=== PATIENT | female | born 1970 | race Caucasian/White ===

== ENCOUNTER → 2017-03-19 | Outpatient (CLI) | payer OTHER ==
[~2017-03-19] MED LIST: ASPIRIN81 M2 PO; BUPROPION XL150 MG PO; CALCITRIOL0.25 MCG PO; CHLORTHALIDONE50 M1 PO; FA-80.8 M1; FERRO-TIME325 MG PO; GABAPENTIN300 M2 PO; HYDRALAZINE HCL25 MG PO; LASIX20 MG PO; LIPITOR40 MG PO; NORMODYNE PO; NORVASC10 MG PO; OMEPRAZOLE20 M2 PO; PAROXETINE HCL10 MG PO; PAROXETINE HCL20 M1 PO; PREDNISONE PO; PRINIVIL20 M1 PO; RENVELA800 MG PO; ROCALTROL0.5 MC1 PO; SENSIPAR30 M1; SOD BICARBONATE PO; SODIUM BICARBO325 MG PO; SYNTHROID PO; VITAMIN B125000 MCG PO; VITAMIN D50000 UNIT PO; ZOCOR PO; ZYLOPRIM PO
--- NOTE | ~2017-03-19 | MY11 ---
[facility] A Service of [facility] RADIOLOGY TEXT RESULTS PATIENT: LINDSEY LEACH LOCATION: [facility] : 66 UNIT #: [id number] AGE: [address]: Ollie Mills MD SEX: F ORDER DR: [id number] [facility]. [place], [place] [address] [id number] O MR#: [id number] Acc #: [id number] NAME: LINDSEY LEACH : 1970 SEX: F STUDY DATE/TIME: 03/19/2017 11:15 UNIT: [facility] ROOM: STUDY DESCRIPTION: MY Mammogram Screening [facility] Attending Physician: Ollie Mills M.D. Ordering Physician: Ollie Mills M.D. Primary Care Physician: Myesha Bell M.D. MEDICAL IMAGING REPORT This report is preliminary unless electronic signature is present EXAM Digital screening mammogram 03/19/2017 HISTORY 46-year-old woman positive family history, grandmother age 68. Annual screen. COMPARISON Mammogram report from [place], [place]. Submitted report includes comparison with previous mammograms. Prior mammogram reports are also provided. Right breast ultrasound report is also included. Dates include June 25, 2006, July 22, 2007 and June 23, 2014. FINDINGS Digital imaging of each breast was completed utilizing screening protocol. Review includes FDA-approved CAD device. Breast parenchyma is fatty replaced. The previously described well-circumscribed lobulated mass centrally located right breast is stable when compared to prior reports. Current measurement in greatest dimension is 2.9 cm. This is previously noted at 3 cm. Characteristics favor a lobulated fibroadenoma although smaller adjacent fibroadenomas are not ruled out. There is no interval occurring suspicious mass or suspicious microcalcifications and no architectural deformity. IMPRESSION Benign mammogram. 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 Annual screening recommended. Patients over the age of 40 are entered into a reminder system with target due date for the next mammogram. A result letter will also be sent to the patient. [facility] A Service of [facility] RADIOLOGY TEXT RESULTS PATIENT: LINDSEY LEACH LOCATION: [facility] : 66 UNIT #: [id number] AGE: [address]: Ollie Mills MD SEX: F ORDER DR: ANABELLADS: 2 Benign finding Dictated by... Charbel Mancuso M.D. THIS IS AN ELECTRONICALLY VERIFIED REPORT Charbel Mancuso M.D. at 03/27/2017 12:12 PM Anahy TD: 03/27/2017 09:19 JOB #: [id number] MEDICAL IMAGING REPORT Page 1 of 1 COPY
== END | disposition home or self-care (01) ==
LOC: CWCC 10:46
DX: Z12.31 Encounter for screening mammogram for malignant neoplasm of breast (principal); Z80.3 Family history of malignant neoplasm of breast
CPT/HCPCS: G0202

== ENCOUNTER 2017-06-15 17:19 | Emergency (ER) | payer OTHER ==
[~2017-06-15 17:19] MED LIST changes: -FA-80.8 M1; -PREDNISONE PO; -SENSIPAR30 M1
[2017-06-15] MEDS ORDERED: FA-80.8 M1 (17:28)
[2017-06-15] MEDS ORDERED: SENSIPAR30 M1 (17:28)
[2017-06-15] MEDS ORDERED: PREDNISONE PO (18:01)
== END 2017-06-15 18:01 | disposition home or self-care (01) ==
LOC: SED 17:19
DX: M10.9 Gout, unspecified (principal); E78.5 Hyperlipidemia, unspecified; E03.9 Hypothyroidism, unspecified; F17.210 Nicotine dependence, cigarettes, uncomplicated; Z79.899 Other long term (current) drug therapy; Z79.82 Long term (current) use of aspirin
CPT/HCPCS: 99283

== ENCOUNTER 2017-07-15 23:27 | Emergency (ER) | payer OTHER ==
[~2017-07-15] VITALS: Ht 157.5 cm; Wt 81.6 kg
[~2017-07-15 23:27] MED LIST changes: +FA-80.8 M1; +PREDNISONE PO; +SENSIPAR30 M1
== END 2017-07-16 00:20 | disposition home or self-care (01) ==
LOC: SED 23:27
DX: M10.9 Gout, unspecified (principal); I10 Essential (primary) hypertension; E03.9 Hypothyroidism, unspecified; F17.200 Nicotine dependence, unspecified, uncomplicated
CPT/HCPCS: 99283